=== PATIENT | female | born 1985 | race Caucasian/White ===

== ENCOUNTER 2018-05-09 19:22 | Emergency (ER) | payer OTHER ==
[~2018-05-09] VITALS: Ht 152.4 cm; Wt 54.5 kg
[~2018-05-09 19:22] MED LIST: PREN1TAB80 PO
[2018-05-09] MEDS ORDERED: no meds PO (19:56)
[2018-05-09] MEDS ORDERED: NO MEDS PO (21:28)
[2018-05-09 22:34] VITALS: BP 120/68
== END 2018-05-09 22:38 | disposition home or self-care (01) ==
LOC: EMS 19:23
DX: G44.209 Tension-type headache, unspecified, not intractable (principal)
CPT/HCPCS: 99283

== ENCOUNTER 2018-05-14 22:43 | Emergency (ER) | payer OTHER ==
[~2018-05-14] VITALS: Ht 152.4 cm; Wt 51.4 kg
[~2018-05-14 22:43] MED LIST changes: +NO MEDS PO; -PREN1TAB80 PO
[2018-05-14] MEDS ORDERED: CYCL10 PO (22:58)
[2018-05-14] MEDS ORDERED: TRAM50TA4 PO (22:58)
[2018-05-15] MEDS ORDERED: KETOROLAC TROMETHAMINE 60 MG/2 ML VIAL IM ONE (00:15)
[2018-05-15] MEDS ORDERED: CYCLOBENZAPRINE HCL 10 MG TABLET PO ONE (00:15)
[2018-05-15 00:44] VITALS: BP 134/88
== END 2018-05-15 00:48 | disposition home or self-care (01) ==
LOC: EMS 22:45
DX: G44.209 Tension-type headache, unspecified, not intractable (principal); G43.909 Migraine, unspecified, not intractable, without status migrainosus; Z86.61 Personal history of infections of the central nervous system; Z90.49 Acquired absence of other specified parts of digestive tract; Z79.899 Other long term (current) drug therapy
CPT/HCPCS: 96372; 99283; J1885

== ENCOUNTER 2018-06-02 20:50 | Emergency (ER) | payer OTHER ==
[~2018-06-02] VITALS: Ht 152.4 cm; Wt 51.4 kg
[~2018-06-02 20:50] MED LIST changes: +CYCL10 PO; -NO MEDS PO; +TRAM50TA4 PO
[2018-06-02 22:10] VITALS: BP 113/69
== END 2018-06-02 22:33 | disposition home or self-care (01) ==
LOC: EMS 20:52
DX: G43.009 Migraine without aura, not intractable, without status migrainosus (principal); Z76.0 Encounter for issue of repeat prescription